=== PATIENT | male | born 1945 | race Caucasian/White ===

== ENCOUNTER → 2016-10-15 | Outpatient (CLI) | payer OTHER | END | disposition home or self-care (01) | LOC: LAB 09:36 | DX: A09 Infectious gastroenteritis and colitis, unspecified (principal) ==

== ENCOUNTER → 2016-12-16 | Outpatient (CLI) | payer OTHER | END | disposition home or self-care (01) | LOC: LAB 10:14 | DX: R19.7 Diarrhea, unspecified (principal) ==

== ENCOUNTER 2016-12-21 12:06 | Inpatient (IN) | payer OTHER ==
[~2016-12-21] VITALS: Ht 213.3 cm; Wt 96.8 kg
--- NOTE | ~2016-12-21 | CON ---
[place], [place] REPORT OF CONSULTATION NAME: CHRISTINA [facility]ILD [facility]: [id number] UNIT #: [id number] ROOM: 522 DOCTOR: AKASH MARCANO MDNEW BAVARIAJUAN CARLOS BIRTHDATE: [birth year] DOS: HISTORY OF PRESENT ILLNESS: A 71-year-old patient who presented with multiple medical issues among which has been dizziness, blurred vision, not feeling well, diarrhea up to 12 times per day. Apparently, this patient has been scoped in [place] by Dr. Knapp, one of the gastroenterologists and the patient has been found to have severe diverticulosis; otherwise, he has had gastritis, but he continues with the stress with diarrhea. Actually, he had electrolyte imbalance and the stress. The patient had a panel of blood work done. C. diff was negative. CT scan of the head for his confusion was obtained that was normal. White blood cell was 6, H and H were 13 and 41. Lactic acid was 0.9. INR was 2.6, PT 29 and PTT 40 seconds. Comprehensive metabolic panel: BUN and creatinine of 33 and 1.4, GFR of 57. Electrolyte, carbon dioxide -8. Magnesium 2.9, lipase 965, ketones were negative. Arterial blood gases pH of 7.1 with base excess of -18 has been addressed. Serum cortisol was 21. His ova and parasite remained negative. His labs and records were reviewed. PAST MEDICAL HISTORY: Associated hypertension, hyperlipidemia, atrial fibrillation, myocardial infarction. PAST SURGICAL HISTORY: Bilateral hip, appendectomy, and pacemaker. SOCIAL HISTORY: Past smoker, past alcohol consumer. FAMILY HISTORY: Noncontributory. ALLERGIES: IBUPROFEN. MEDICATIONS: List has been reviewed. REVIEW OF SYSTEMS: HEENT: Denies double vision, blurred vision. RESPIRATORY: Denies acute shortness of breath, chronically short of breath. DIGESTIVE SYSTEM: Diarrhea. CARDIOVASCULAR: History of myocardial infarction. PHYSICAL EXAMINATION: VITAL SIGNS: Stable. HEENT: Head normocephalic, nontraumatic. Mouth and buccal mucosa benign. NECK: Supple, no thyromegaly. CHEST: Symmetric anatomy, equal expansion. No wheeze, no rhonchi. HEART: Normal sinus rhythm, no gallop, no murmur. ABDOMEN: Soft. No hepato-organomegaly. Bowel sounds present. EXTREMITIES: No cyanosis, no pedal edema. NEUROLOGIC: Alert and oriented to time, place, person. Sensory, motor intact. Cranial nerves 2-12 intact. INTEGUMENT: Numerous homemade tattooings. IMPRESSION: Diarrhea, base loss, metabolic acidosis, electrolyte distress, dehydration. Apparently, the patient has severe diverticulosis. I do not have [place], [place] REPORT OF CONSULTATION NAME: CHRISTINA CHILD UNIT #: [id number] ROOM: 522 DOCTOR: EDMOND MARCANO MD BIRTHDATE: [birth year] any more data beyond this. C. diff has been negative. Other adjunctive diagnoses: Atrial fibrillation, hypertension, renal insufficiency, all have been recognized. PLAN AND DISCUSSION: Due to the persistent diarrhea and C. diff negativity and ova and parasite negativity, I am going to start him on sulfasalazine 500 mg p.o. 2 tablets b.i.d. in addition to folic acid 1 mg daily at least to see if we can bring some sanity to his improvement of diarrhea. I wish I had the biopsy results for any comments except the data that I have on my hand with no specific pathology in the tissue. Therefore, severe diverticulosis is going to be addressed to be perhaps a culprit in bacterial overgrowth ____ diverticulum, therefore, Flagyl 500 mg p.o. t.i.d. is going to be also adopted for bacteria reduction as well in case C. diff false negativity report to be addressed. I will be following along with you. Should his condition continue, then she requires reassessment after colonoscopy with addition of terminal ileoscopy at such a time. Due to be ambiguity of all the scenario and abdominal distress and clinical presentation of severe acidosis, I will go ahead with a CT scan of the abdomen with oral contrast as well. Thank you very much indeed. EDMOND MARCANO MD CM:CONSTR:REPORT OF CONSULTATION 1144 12/23/16 2228 interface
--- NOTE | ~2016-12-21 | PR ---
[place], [place] PROGRESS NOTE NAME: CHRISTINA CHILD UNIT #: [id number] ROOM: 511 DOCTOR: YARELIS MOODYROSANNE Walters BIRTHDATE: [birth year] DOS: 12/25/2016 NEPHROLOGY PROGRESS NOTE SUBJECTIVE: The patient was seen and evaluated in followup of metabolic acidosis, EDSON and electrolyte abnormalities. He went back to the ICU after his defibrillator fired. He was noted to have AFib with RVR. He is currently without acute complaints at this time. GI is continuing to follow. Stool is less watery and more pudding like per staff, started on sulfasalazine by GI. Potassium replacement has been started. OBJECTIVE: VITAL SIGNS: Afebrile, heart rates in the 60s-70s, respiratory rate 16, blood pressure is 90s-100s on a Cardizem drip, pulse ox 94-97% on room air. GENERAL: Awake, alert and oriented, in no acute distress, pleasant mood and affect. Speech is clear and cogent. LUNGS: Clear bilaterally. No audible rales, rhonchi or wheeze. CARDIOVASCULAR: Rate irregular, but rate controlled. No audible rub. ABDOMEN: Soft, nontender, nondistended, without rebound or guarding. EXTREMITIES: Periphery without significant peripheral cyanosis, clubbing or edema. LABORATORIES AND DIAGNOSTICS: White blood cell count 6.5, hemoglobin 11.9, platelet 170, sodium 148, potassium 3.2, chloride 118, bicarb 21, BUN 12, creatinine 1.09, calcium 8.4, phosphorus 1.7, magnesium 2.3. ASSESSMENT AND PLAN: 1. EDSON, overall improved. Monitor GI losses primarily. 2. Electrolytes, hypernatremia, hypokalemia, metabolic acidosis, secondary diarrhea and free water losses. We will give 1 liter of D5W with 20 mEq of potassium as well as start 40 mEq t.i.d. as he has already received 40 mg on a daily basis with no improvement. Additional 45 millimoles of K-Phos will be given as phosphorus continues to be slow to improve despite adequate oral intake. AFib with RVR, continue replacement of electrolytes and monitor further per Cardiology. [place], [place] PROGRESS NOTE NAME: CHRISTINA CHILD UNIT #: [id number] ROOM: [facility] DOCTOR: ROSANNE SANTOYO MD BIRTHDATE: [birth year] ROSANNE SANTOYO MD CM:PNTRANS [id number] ROSANNE SANTOYO MD 12/26/16 1309 interface
--- NOTE | ~2016-12-21 | CON ---
[place], [place] REPORT OF CONSULTATION NAME: CHRISTINA CHILD UNIT #: [id number] ROOM: 511 DOCTOR: JOSE C MOODY [facility] BIRTHDATE: [birth year] DOS: 12/25/2016 ADDENDUM The patient was not on Nipride and we will continue the current, blood pressure is stable. If unstable, he will be followed with Dr. Jeronimo. AMARA WOODALL MD CM:CONSTR:REPORT OF CONSULTATION 1110 12/26/16 0557 interface
--- NOTE | ~2016-12-21 | PR ---
[place], [place] PROGRESS NOTE [id number] UNIT #: [id number] ROOM: 511 DOCTOR: JOSE C MOODY [facility] BIRTHDATE: [birth year] DOS: 12/25/2016 CARDIOLOGY PROGRESS NOTE COVERING: Dr. Jeronimo. SUBJECTIVE: No ____, no syncope. The patient came in with a loose bowel, slurred speech and managed, found to be severely hypotensive and tachycardic, and the patient is on amiodarone by mouth and IV discontinued; hypotensive crisis, was transiently on Nipride and Cardizem and amiodarone. All the drips are off and maintaining the blood pressure optimally with the oral medications. The patient was concerned about having a TIA, but no history of cerebrovascular problem in the past. The patient has a history of myocardial infarction in the past. The patient came to the Emergency Room. Chest x-ray with mild left base atelectasis, no acute changes and very tiny left pleural effusion. CT scan of the head without contrast, no acute intracranial process. The patient was in atrial fibrillation, apparently chronic, but now, he appears to be sinus rhythm with optimal medical therapy and doing quite well. PHYSICAL EXAMINATION: SKIN: The skin is warm, not diaphoretic. NECK: Supple. LUNGS: No rales heard. HEART: S1, S2, regular. ABDOMEN: Soft. Clinically, he appears stable. Hemodynamically stable. We will continue the current therapy. AMARA WOODALL MD CM:PNTRANS [id number] AMARA WOODALL MD [facility] 12/28/16 0507 interface
--- NOTE | ~2016-12-21 | CON ---
[place], [place] REPORT OF CONSULTATION NAME: CHRISTINA CHILD UNIT #: [id number] ROOM: 511 DOCTOR: JOSE C MOODY [facility] BIRTHDATE: [birth year] DOS: 12/25/2016 CARDIOLOGY CONSULT Refer to the note as a part of the consultation which is dictated today and the patient had atrial fibrillation with a very rapid ventricular response and ICD function and able to get him back into the sinus and because of the very rapid heart rate and he had responded that way on the defibrillator we are adjusting the medication to function optimally and the Lumen[employer]it[employer] RAP review that is atrial fibrillation with rapid ventricular response. No true ventricular tachycardia or ventricular fibrillation. Amiodarone will be converted today by mouth and 200 mg twice a day and then we will discontinue the amiodarone drip and we will also maintain the optimal heart rate with medications. He is on amiodarone 200 mg twice a day and metoprolol 50 mg twice a day and the patient is on warfarin. Cardizem drip is off and we will put him on Cardizem 240 mg daily that should keep him in sinus rhythm. Cardizem CD 240 mg daily, a dose now and one daily, explained to the patient. We will follow the patient closely. Hemodynamically stable at this time. AMARA WOODALL MD CM:CONSTR:REPORT OF CONSULTATION 1123 12/28/16 0154 interface
[2016-12-21 12:13] VITALS: BP 116/83
[2016-12-21] MEDS ORDERED: WARFARIN SOD5 MG PO (12:47)
[2016-12-21] MEDS ORDERED: LISINOPRIL10 M1 PO (12:47)
[2016-12-21] MEDS ORDERED: OMEPRAZOLE D/R20 MG PO (12:48)
[2016-12-21] MEDS ORDERED: ATORVASTATIN CA80 M1 PO (12:48)
[2016-12-21] MEDS ORDERED: FUROSEMIDE20 M1 PO (12:48)
[2016-12-21] MEDS ORDERED: POTASSIUM CHLO10 ME5 PO (12:49)
[2016-12-21] MEDS ORDERED: METOPROLOL SUC200 M1 PO (12:50)
[2016-12-21] MEDS ORDERED: CHOLESTYRAMINE1 PO1 (12:51)
[2016-12-21] MEDS ORDERED: SMZ-TMP 800 MG-1 TA1 PO (12:51)
[2016-12-21 13:26] LABS: BASO % 0.3 % (0.0-1.0); EOS % 0.7 % (1.0-4.0); HEMATOCRIT 41.6 % (42.0-52.0); LYMPH # 1.2 10*3/uL (1.3-4.4); LYMPH % 19.8 % (27.0-41.0); MEAN CELL VOLUME 86.3 fl (80.0-94.0); MEAN CORPUSCULAR HGB CONC 31.3 g/dl (33.0-37.0); MEAN PLATELET VOLUME 10.8 fl (9.6-12.3); MONO # 0.5 10*3/uL (0.1-1.0); MONO % 8.1 % (3.0-9.0); NEUT # 4.2 10*3/uL (2.3-7.9); NEUT % 70.8 % (47.0-73.0); PLATELET COUNT AUTOMATED 169 10*3/uL (130-400); RED BLOOD COUNT 4.82 10*6/uL (4.50-5.90)
[2016-12-21 13:35] LABS: INTERNATIONAL NORM RATIO 2.6 (2.0-3.5)
[2016-12-21 13:43] LABS: ALBUMIN 3.2 gm/dl (3.1-4.5); ALKALINE PHOSPHATASE 139 U/L (45-117); BILIRUBIN, TOTAL 0.3 mg/dl (0.2-1.0); BUN 33 mg/dl (7-24); CHLORIDE 123 mmol/L (98-107); CPK 82 U/L (39-308); EST GLOM FILT AFRICAN AMERICAN 57 ml/min; GLUCOSE 78 mg/dL (65-99); MAGNESIUM 2.9 mg/dL (1.5-2.1); POTASSIUM 3.7 mmol/L (3.5-5.1); SGOT/AST 23 IU/L (3-35); SGPT/ALT 19 U/L (12-78); SODIUM 143 mmol/L (136-145); TOTAL PROTEIN 6.9 gm/dL (6.4-8.2); TROPONIN I 0.018 ng/ml (<0.045)
[2016-12-21 13:45] LABS: C-REACTIVE PROTEIN < 0.29 MG/DL (0-0.3)
[2016-12-21 13:46] LABS: CARBON DIOXIDE 8 mmol/L (21-32)
[2016-12-21 13:47] LABS: CKMB 5.4 ng/ml (0.5-3.6)
[2016-12-21 13:49] VITALS: BP 106/56
[2016-12-21 14:53] VITALS: BP 91/49
[2016-12-21 15:06] LABS: OXYHEMOGLOBIN 60.7 % (85.0-98.0)
[2016-12-21 15:09] LABS: ABG CO2 CONTENT 8.9 mmol/L (23-27); ABG HCO3 8.2 mmol/l (22-26)
[2016-12-21 15:14] LABS: ABG BASE EXCESS -18.7 mmol/L (-2.0-2.0); ARTERIAL BLOOD GAS PH 7.193 (7.35-7.45)
[2016-12-21 16:40] LABS: BILIRUBIN NEGATIVE (NEGATIVE); BLOOD 1+ (NEGATIVE); CLARITY CLEAR (CLEAR); COLOR YELLOW (YELLOW); GLUCOSE NEGATIVE (NEGATIVE); KETONE NEGATIVE (NEGATIVE); LEUKO ESTERASE NEGATIVE (NEGATIVE); NITRITE NEGATIVE (NEGATIVE); PH 6.5 (5.0-9.0); PROTEIN 1+ (NEGATIVE); UROBILINOGEN 0.2 E.U./dl (0.2-1.0)
[2016-12-21 17:01] LABS: BACTERIA 1+; URINE REFLEX COMMENT YES (NO)
[2016-12-21 17:15] VITALS: BP 113/56; BP 113/59
[2016-12-21 20:00] VITALS: BP 117/62
[2016-12-22] VITALS: BP 104/52
[2016-12-22 04:22] VITALS: BP 93/59
[2016-12-22 06:22] LABS: BASO % 0.3 % (0.0-1.0); EOS # 0.1 10*3/uL (0.0-0.4); EOS % 1.4 % (1.0-4.0); HEMATOCRIT 38.8 % (42.0-52.0); HEMOGLOBIN 12.4 g/dl (14.0-18.0); LYMPH # 1.3 10*3/uL (1.3-4.4); LYMPH % 21.8 % (27.0-41.0); MEAN CELL VOLUME 84.9 fl (80.0-94.0); MEAN CORPUSCULAR HGB 27.1 pg (27.0-31.0); MEAN PLATELET VOLUME 11.1 fl (9.6-12.3); MONO # 0.6 10*3/uL (0.1-1.0); MONO % 9.6 % (3.0-9.0); NEUT # 3.8 10*3/uL (2.3-7.9); NEUT % 66.6 % (47.0-73.0); PLATELET COUNT AUTOMATED 184 10*3/uL (130-400); RED BLOOD COUNT 4.57 10*6/uL (4.50-5.90); WHITE BLOOD COUNT 5.7 10*3/uL (4.8-10.8)
[2016-12-22 06:30] LABS: HEMOGLOBIN A1c 5.7 % (4.8-5.6)
[2016-12-22 06:49] LABS: BILIRUBIN, TOTAL 0.2 mg/dl (0.2-1.0); MAGNESIUM 2.5 mg/dL (1.5-2.1); PHOSPHOROUS 1.8 mg/dL (2.5-4.9); POTASSIUM 3.2 mmol/L (3.5-5.1); TOTAL PROTEIN 6.3 gm/dL (6.4-8.2)
[2016-12-22 06:51] LABS: INTERNATIONAL NORM RATIO 2.3 (2.0-3.5); PROTHROMBIN TIME 25.4 SECONDS (9.0-12.4)
[2016-12-22 06:55] LABS: THYROID STIM HORMONE (HS) 2.26 uIU/ml (0.358-4.75)
[2016-12-22 07:22] LABS: VITAMIN D, 25-HYDROXY 22.3 ng/mL (30-100)
[2016-12-22 07:23] LABS: FOLIC ACID 18.51 ng/mL (>5.38)
[2016-12-22 08:00] VITALS: BP 106/46
[2016-12-22 12:00] VITALS: BP 95/52
[2016-12-22 15:49] LABS: URINE TP/CRE RATIO 0.5 (<0.21)
[2016-12-22 16:00] VITALS: BP 101/54
[2016-12-22 20:00] VITALS: BP 126/63
[2016-12-23] VITALS: BP 100/43
[2016-12-23 04:00] VITALS: BP 109/49
[2016-12-23 05:15] LABS: ALBUMIN 2.8 gm/dl (3.1-4.5); ALKALINE PHOSPHATASE 116 U/L (45-117); BILIRUBIN, TOTAL 0.4 mg/dl (0.2-1.0); BUN 25 mg/dl (7-24); CARBON DIOXIDE 24 mmol/L (21-32); CHLORIDE 118 mmol/L (98-107); EST GLOM FILT AFRICAN AMERICAN > 60 ml/min; GLUCOSE 100 mg/dL (65-99); MAGNESIUM 2.2 mg/dL (1.5-2.1); PHOSPHOROUS 1.6 mg/dL (2.5-4.9); POTASSIUM 2.9 mmol/L (3.5-5.1); SGOT/AST 19 IU/L (3-35); SGPT/ALT 17 U/L (12-78); SODIUM 149 mmol/L (136-145); TOTAL PROTEIN 5.9 gm/dL (6.4-8.2)
[2016-12-23 05:58] LABS: BASO % 0.6 % (0.0-1.0); EOS # 0.1 10*3/uL (0.0-0.4); HEMATOCRIT 36.3 % (42.0-52.0); HEMOGLOBIN 11.5 g/dl (14.0-18.0); LYMPH # 1.6 10*3/uL (1.3-4.4); LYMPH % 30.1 % (27.0-41.0); MEAN CELL VOLUME 84.2 fl (80.0-94.0); MEAN CORPUSCULAR HGB 26.7 pg (27.0-31.0); MEAN CORPUSCULAR HGB CONC 31.7 g/dl (33.0-37.0); MEAN PLATELET VOLUME 11.1 fl (9.6-12.3); MONO # 0.4 10*3/uL (0.1-1.0); MONO % 7.9 % (3.0-9.0); NEUT # 3.2 10*3/uL (2.3-7.9); NEUT % 59.2 % (47.0-73.0); PLATELET COUNT AUTOMATED 168 10*3/uL (130-400); RED BLOOD COUNT 4.31 10*6/uL (4.50-5.90); RED CELL DISTRI WIDTH 16.4 % (0-14.5); WHITE BLOOD COUNT 5.4 10*3/uL (4.8-10.8)
[2016-12-23 06:26] LABS: ABG CO2 CONTENT 18.4 mmol/L (23-27); ABG HCO3 17.5 mmol/l (22-26); ABG TEMPERATURE 97.7 F (98.0-99.0); ARTERIAL BLOOD GAS PH 7.401 (7.35-7.45); ARTERIAL BLOOD GAS PO2 75.4 mmHg (80-90)
[2016-12-23 06:27] LABS: ABG BASE EXCESS -5.9 mmol/L (-2.0-2.0)
[2016-12-23 08:00] VITALS: BP 120/62
[2016-12-23 12:00] VITALS: BP 115/55
[2016-12-23 16:00] VITALS: BP 129/64
[2016-12-23 20:00] VITALS: BP 109/49
[2016-12-24] VITALS (7 sets, daily range): BP systolic 89–181; BP diastolic 40–100
[2016-12-24 11:18] LABS: CARBON DIOXIDE 21 mmol/L (21-32); CHLORIDE 120 mmol/L (98-107); EST GLOM FILT AFRICAN AMERICAN > 60 ml/min; GLUCOSE 147 mg/dL (65-99); POTASSIUM 3.4 mmol/L (3.5-5.1); SODIUM 149 mmol/L (136-145)
[2016-12-24 11:43] LABS: MAGNESIUM 2.3 mg/dL (1.5-2.1); PHOSPHOROUS 1.5 mg/dL (2.5-4.9)
[2016-12-24 11:43] LABS: BUN 13 mg/dl (7-24)
[2016-12-24 13:05] LABS: t-TRANSGLUTAMINASE (tTG) IgG <2 U/mL (0-5)
[2016-12-24 16:34] LABS: INTERNATIONAL NORM RATIO 1.6 (2.0-3.5); PROTHROMBIN TIME 17.2 SECONDS (9.0-12.4)
[2016-12-24 16:37] LABS: BUN 15 mg/dl (7-24); CARBON DIOXIDE 17 mmol/L (21-32); CHLORIDE 118 mmol/L (98-107); EST GLOM FILT AFRICAN AMERICAN > 60 ml/min; GLUCOSE 156 mg/dL (65-99); POTASSIUM 3.3 mmol/L (3.5-5.1); SODIUM 147 mmol/L (136-145)
[2016-12-24 16:42] LABS: CKMB 3.6 ng/ml (0.5-3.6); TROPONIN I 0.041 ng/ml (<0.045)
[2016-12-25] VITALS (12 sets, daily range): BP systolic 98–112; BP diastolic 38–62
[2016-12-25 06:04] LABS: BASO % 0.6 % (0.0-1.0); EOS # 0.1 10*3/uL (0.0-0.4); EOS % 1.8 % (1.0-4.0); HEMATOCRIT 37.6 % (42.0-52.0); HEMOGLOBIN 11.9 g/dl (14.0-18.0); LYMPH # 1.7 10*3/uL (1.3-4.4); LYMPH % 25.5 % (27.0-41.0); MEAN CELL VOLUME 84.3 fl (80.0-94.0); MEAN CORPUSCULAR HGB 26.7 pg (27.0-31.0); MEAN CORPUSCULAR HGB CONC 31.6 g/dl (33.0-37.0); MEAN PLATELET VOLUME 11.3 fl (9.6-12.3); MONO # 0.5 10*3/uL (0.1-1.0); MONO % 7.7 % (3.0-9.0); NEUT # 4.2 10*3/uL (2.3-7.9); NEUT % 63.9 % (47.0-73.0); PLATELET COUNT AUTOMATED 170 10*3/uL (130-400); RED BLOOD COUNT 4.46 10*6/uL (4.50-5.90); RED CELL DISTRI WIDTH 17.2 % (0-14.5); WHITE BLOOD COUNT 6.5 10*3/uL (4.8-10.8)
[2016-12-25 06:39] LABS: ALBUMIN 3.2 gm/dl (3.1-4.5); BUN 12 mg/dl (7-24); CARBON DIOXIDE 21 mmol/L (21-32); CHLORIDE 118 mmol/L (98-107); EST GLOM FILT AFRICAN AMERICAN > 60 ml/min; GLUCOSE 103 mg/dL (65-99); MAGNESIUM 2.3 mg/dL (1.5-2.1); PHOSPHOROUS 1.7 mg/dL (2.5-4.9); POTASSIUM 3.2 mmol/L (3.5-5.1); SODIUM 148 mmol/L (136-145)
[2016-12-25 07:53] LABS: INTERNATIONAL NORM RATIO 1.6 (2.0-3.5)
[2016-12-26] VITALS: BP 105/52
[2016-12-26 06:19] LABS: BASO % 0.5 % (0.0-1.0); EOS # 0.1 10*3/uL (0.0-0.4); EOS % 2.1 % (1.0-4.0); HEMATOCRIT 36.7 % (42.0-52.0); HEMOGLOBIN 11.5 g/dl (14.0-18.0); LYMPH # 1.7 10*3/uL (1.3-4.4); MEAN CELL VOLUME 85.3 fl (80.0-94.0); MEAN CORPUSCULAR HGB 26.7 pg (27.0-31.0); MEAN CORPUSCULAR HGB CONC 31.3 g/dl (33.0-37.0); MEAN PLATELET VOLUME 11.6 fl (9.6-12.3); MONO # 0.5 10*3/uL (0.1-1.0); MONO % 7.3 % (3.0-9.0); NEUT # 4.3 10*3/uL (2.3-7.9); NEUT % 64.8 % (47.0-73.0); PLATELET COUNT AUTOMATED 170 10*3/uL (130-400); RED CELL DISTRI WIDTH 17.6 % (0-14.5); WHITE BLOOD COUNT 6.6 10*3/uL (4.8-10.8)
[2016-12-26 06:49] LABS: ALBUMIN 2.9 gm/dl (3.1-4.5); BUN 12 mg/dl (7-24); CARBON DIOXIDE 22 mmol/L (21-32); CHLORIDE 115 mmol/L (98-107); EST GLOM FILT AFRICAN AMERICAN > 60 ml/min; GLUCOSE 97 mg/dL (65-99); MAGNESIUM 2.2 mg/dL (1.5-2.1); PHOSPHOROUS 2.1 mg/dL (2.5-4.9); POTASSIUM 4.1 mmol/L (3.5-5.1); SODIUM 146 mmol/L (136-145)
[2016-12-26 06:54] LABS: INTERNATIONAL NORM RATIO 1.9 (2.0-3.5); PROTHROMBIN TIME 20.9 SECONDS (9.0-12.4)
[2016-12-26 08:00] VITALS: BP 108/60; BP 96/60
[2016-12-26 12:00] VITALS: BP 108/56
[2016-12-26] MEDS ORDERED: METOPROLOL TART50 M1 PO (13:21)
[2016-12-26] MEDS ORDERED: COUMADIN6 M2 PO (13:21)
[2016-12-26] MEDS ORDERED: DILTIAZEM CD240 MG PO (13:21)
[2016-12-26] MEDS ORDERED: NATURE'S BLEND F1 MG PO (13:21)
[2016-12-26] MEDS ORDERED: D-1000 185 MG-11 TAB PO (13:21)
[2016-12-26] MEDS ORDERED: LOPERAMIDE HCL2 MG PO (13:21)
[2016-12-26] MEDS ORDERED: METAMUCIL FIBE3.4 GM PO (13:21)
[2016-12-26] MEDS ORDERED: KLOR-CON M2020 ME1 PO (13:21)
[2016-12-26] MEDS ORDERED: PROBIOTIC1 EACH PO (15:12)
[2016-12-26 16:00] VITALS: BP 97/60
[2016-12-26 20:00] VITALS: BP 105/60
[2016-12-27] VITALS: BP 121/67
[2016-12-27 07:12] LABS: BUN 10 mg/dl (7-24); CARBON DIOXIDE 24 mmol/L (21-32); CHLORIDE 114 mmol/L (98-107); EST GLOM FILT AFRICAN AMERICAN > 60 ml/min; GLUCOSE 101 mg/dL (65-99); MAGNESIUM 2.4 mg/dL (1.5-2.1); POTASSIUM 4.4 mmol/L (3.5-5.1); SODIUM 146 mmol/L (136-145)
[2016-12-27 08:00] VITALS: BP 114/66
[2016-12-27 12:00] VITALS: BP 128/60
== END 2016-12-27 13:05 | disposition home or self-care (01) | DRG 391 ==
LOC: ED 12:06 → EDHOLD 14:21 → ICCU 14:21 → 5E 14:21 → EDHOLD 14:59 → 4E 15:56 → ICCU 20:03 → 5E 12-23 13:29 → ICCU 12-24 16:20 → 5E 12-25 16:59
PROVIDERS: Emergency Medicine; Hospitalist; Internal Medicine; Internal Medicine Nephrology
DX: K52.9 Noninfective gastroenteritis and colitis, unspecified (principal); N17.0 Acute kidney failure with tubular necrosis; E87.2 Acidosis; E87.0 Hyperosmolality and hypernatremia; E44.0 Moderate protein-calorie malnutrition; I48.2 Chronic atrial fibrillation; E78.5 Hyperlipidemia, unspecified; E83.41 Hypermagnesemia; I12.9 Hypertensive chronic kidney disease with stage 1 through stage 4 chronic kidney disease, or unspecified chronic kidney disease; E83.39 Other disorders of phosphorus metabolism; Z96.643 Presence of artificial hip joint, bilateral; R26.81 Unsteadiness on feet; D64.9 Anemia, unspecified; N18.3 Chronic kidney disease, stage 3 (moderate); E87.6 Hypokalemia; E86.0 Dehydration; I25.2 Old myocardial infarction; Z90.49 Acquired absence of other specified parts of digestive tract; Z87.891 Personal history of nicotine dependence; Z88.6 Allergy status to analgesic agent; Z79.01 Long term (current) use of anticoagulants; Z79.899 Other long term (current) drug therapy

== ENCOUNTER → 2017-10-20 | Outpatient (CLI) | payer OTHER ==
[~2017-10-20] MED LIST: ATORVASTATIN CA80 M1 PO; CHOLESTYRAMINE1 PO1; COUMADIN6 M2 PO; D-1000 185 MG-11 TAB PO; DILTIAZEM CD240 MG PO; FUROSEMIDE20 M1 PO; KLOR-CON M2020 ME1 PO; LISINOPRIL10 M1 PO; LOPERAMIDE HCL2 MG PO; METAMUCIL FIBE3.4 GM PO; METOPROLOL SUC200 M1 PO; METOPROLOL TART50 M1 PO; NATURE'S BLEND F1 MG PO; OMEPRAZOLE D/R20 MG PO; POTASSIUM CHLO10 ME5 PO; PROBIOTIC1 EACH PO; SMZ-TMP 800 MG-1 TA1 PO; WARFARIN SOD5 MG PO
== END | disposition home or self-care (01) ==
LOC: RAD 10-14 11:30
DX: Z13.820 Encounter for screening for osteoporosis (principal); R73.03 Prediabetes

== ENCOUNTER 2017-11-12 06:29 | Inpatient (IN) | payer OTHER ==
[~2017-11-12] VITALS: Ht 182.8 cm; Wt 104.4 kg
--- NOTE | ~2017-11-12 | EKG ---
[place], [place] ELECTROCARDIOGRAM REPORT NAME: CHRISTINA CHILD UNIT #: [id number] ROOM: [facility] DOCTOR: JOSE C MOODY [facility] BIRTHDATE: [birth year] DOS: 11/12/2017 TIME: 1212 hours. CONCLUSION: 1. Sinus rhythm. 2. Old anteroseptal infarction. 3. Low voltage. 4. Left anterior hemiblock. 5. Nonspecific ST changes. 6. Atrial pacing with intrinsic AV conduction and intrinsic QRS complex. AMARA WOODALL MD CM:EKGRPT:ELECTROCARDIOGRAM REPORT 1203 1227 AMARA WOODALL MD [facility]
--- NOTE | ~2017-11-12 | EKG ---
[place], [place] ELECTROCARDIOGRAM REPORT NAME: CHRISTINA CHILD UNIT #: [id number] ROOM: [facility] DOCTOR: JOSE C MOODY [facility] BIRTHDATE: [birth year] DOS: 11/12/2017 TIME: 0926 hours. CONCLUSION: 1. Atrial pacing. 2. Intrinsic AV conduction. 3. Intrinsic QRS complex. 4. Old anteroseptal infarction. 5. Left anterior hemiblock. 6. Low voltage. AMARA WOODALL MD CM:EKGRPT:ELECTROCARDIOGRAM REPORT 1203 1231 AMARA WOODALL MD [facility]
--- NOTE | ~2017-11-12 | EKG ---
[place], [place] ELECTROCARDIOGRAM REPORT NAME: CHRISTINA CHILD UNIT #: [id number] ROOM: [facility] DOCTOR: JOSE C MOODY [facility] BIRTHDATE: [birth year] DOS: 11/12/2017 TIME: 0638 hours. CONCLUSION: 1. Sinus rhythm. 2. Old anteroseptal infarction. 3. Left anterior hemiblock. 4. Low voltage. 5. Nonspecific ST changes. AMARA WOODALL MD CM:EKGRPT:ELECTROCARDIOGRAM REPORT 1203 1233 AMARA WOODALL MD [facility]
[2017-11-12 06:30] VITALS: BP 147/71
[2017-11-12] MEDS ORDERED: METOPROLOL SUC100 M1 PO (06:47)
[2017-11-12] MEDS ORDERED: METOPROLOL SUCC50 M1 PO (06:47)
[2017-11-12] MEDS ORDERED: OMEPRAZOLE MAGN20 MG PO (06:47)
[2017-11-12] MEDS ORDERED: KLOR-CON 1010 ME1 PO (06:47)
[2017-11-12] MEDS ORDERED: LASIX20 MG PO (06:48)
[2017-11-12] MEDS ORDERED: FLAX SEED OIL1000 M2 PO (06:48)
[2017-11-12] MEDS ORDERED: ZESTRIL5 MG PO (06:48)
[2017-11-12] MEDS ORDERED: XARE15TA PO (06:48)
[2017-11-12] MEDS ORDERED: ATORVASTATIN CA80 M1 PO (06:49)
[2017-11-12] MEDS ORDERED: MULTIVITAMINS1 EAC5 PO (06:49)
[2017-11-12] MEDS ORDERED: [UNRECOGNIZED DRUG - OTHER] PO (06:50)
[2017-11-12 06:55] LABS: BASO % 0.4 % (0.0-1.0); EOS # 0.1 10*3/uL (0.0-0.4); EOS % 1.9 % (1.0-4.0); HEMATOCRIT 41.7 % (42.0-52.0); HEMOGLOBIN 13.5 g/dl (14.0-18.0); LYMPH # 1.3 10*3/uL (1.3-4.4); LYMPH % 23.4 % (27.0-41.0); MEAN CELL VOLUME 87.8 fl (80.0-94.0); MEAN CORPUSCULAR HGB 28.4 pg (27.0-31.0); MEAN CORPUSCULAR HGB CONC 32.4 g/dl (33.0-37.0); MEAN PLATELET VOLUME 11.6 fl (9.6-12.3); MONO # 0.4 10*3/uL (0.1-1.0); MONO % 6.9 % (3.0-9.0); NEUT # 3.6 10*3/uL (2.3-7.9); NEUT % 67.2 % (47.0-73.0); PLATELET COUNT AUTOMATED 157 10*3/uL (130-400); RED BLOOD COUNT 4.75 10*6/uL (4.50-5.90); WHITE BLOOD COUNT 5.4 10*3/uL (4.8-10.8)
[2017-11-12 07:04] LABS: ACT PARTIAL THROMBO TIME 32.3 SECONDS (20.8-31.5); INTERNATIONAL NORM RATIO 1.2 (2.0-3.5)
[2017-11-12 07:07] VITALS: BP 122/41
[2017-11-12 07:36] LABS: ALBUMIN 3.2 gm/dl (3.1-4.5); ALKALINE PHOSPHATASE 108 U/L (45-117); BUN 23 mg/dl (7-24); CHLORIDE 108 mmol/L (98-107); CREATININE 1.14 mg/dL (0.70-1.30); POTASSIUM 4.2 mmol/L (3.5-5.1); SGOT/AST 24 IU/L (3-35); SGPT/ALT 21 U/L (12-78); SODIUM 140 mmol/L (136-145); TOTAL PROTEIN 7.1 gm/dL (6.4-8.2)
[2017-11-12 07:40] LABS: TROPONIN I < 0.015 ng/ml (<0.045)
[2017-11-12 08:40] VITALS: BP 136/65
[2017-11-12] MEDS ORDERED: LOMOTIL 2.5-0.1 EACH PO (08:43)
[2017-11-12 12:00] VITALS: BP 115/56
[2017-11-12 16:00] VITALS: BP 118/61
[2017-11-12 20:00] VITALS: BP 118/59
[2017-11-13] VITALS: BP 117/54
[2017-11-13 06:04] LABS: BASO % 0.4 % (0.0-1.0); EOS # 0.1 10*3/uL (0.0-0.4); EOS % 1.8 % (1.0-4.0); HEMATOCRIT 39.7 % (42.0-52.0); HEMOGLOBIN 12.7 g/dl (14.0-18.0); LYMPH # 1.4 10*3/uL (1.3-4.4); MEAN CELL VOLUME 89.2 fl (80.0-94.0); MEAN CORPUSCULAR HGB 28.5 pg (27.0-31.0); MEAN PLATELET VOLUME 11.9 fl (9.6-12.3); MONO # 0.6 10*3/uL (0.1-1.0); MONO % 10.1 % (3.0-9.0); NEUT # 3.4 10*3/uL (2.3-7.9); NEUT % 62.3 % (47.0-73.0); PLATELET COUNT AUTOMATED 139 10*3/uL (130-400); RED BLOOD COUNT 4.45 10*6/uL (4.50-5.90); RED CELL DISTRI WIDTH 14.1 % (0-14.5); WHITE BLOOD COUNT 5.5 10*3/uL (4.8-10.8)
[2017-11-13 06:18] LABS: ACT PARTIAL THROMBO TIME 31.1 SECONDS (20.8-31.5); INTERNATIONAL NORM RATIO 1.2 (2.0-3.5)
[2017-11-13 06:22] LABS: BUN 19 mg/dl (7-24); CHLORIDE 110 mmol/L (98-107); CHOLESTEROL 93 mg/dL (<200); CREATININE 1.02 mg/dL (0.70-1.30); HDL CHOLESTEROL 34 mg/dl (40-60); LDL CHOLESTEROL 37 mg/dL (9-159); PHOSPHOROUS 3.6 mg/dL (2.5-4.9); POTASSIUM 3.8 mmol/L (3.5-5.1); SODIUM 144 mmol/L (136-145); TRIGLYCERIDES 109 mg/dl (<150); VLDL CHOLESTEROL 22 mg/dL (6-40)
[2017-11-13 06:29] LABS: FREE T4 1.51 ng/dl (0.76-1.46)
[2017-11-13 06:47] LABS: VITAMIN D, 25-HYDROXY 50.3 ng/mL (30-100)
[2017-11-13 08:00] VITALS: BP 112/60
== END 2017-11-13 11:55 | disposition home or self-care (01) | DRG 206 ==
LOC: ED 06:29 → EDHOLD 07:52 → 5E 07:52
PROVIDERS: Emergency Medicine Emergency Medical Services; Internal Medicine
PROC: 4B02XTZ Measurement of Cardiac Defibrillator, External Approach (ICD-10-PCS; principal; 2017-11-12)
DX: M94.0 Chondrocostal junction syndrome [Tietze] (principal); D68.9 Coagulation defect, unspecified; N18.3 Chronic kidney disease, stage 3 (moderate); I48.0 Paroxysmal atrial fibrillation; I13.0 Hypertensive heart and chronic kidney disease with heart failure and stage 1 through stage 4 chronic kidney disease, or unspecified chronic kidney disease; D64.9 Anemia, unspecified; K52.9 Noninfective gastroenteritis and colitis, unspecified; E78.5 Hyperlipidemia, unspecified; I25.10 Atherosclerotic heart disease of native coronary artery without angina pectoris; K21.9 Gastro-esophageal reflux disease without esophagitis; T45.515A Adverse effect of anticoagulants, initial encounter; Z96.643 Presence of artificial hip joint, bilateral; E83.41 Hypermagnesemia; Z95.810 Presence of automatic (implantable) cardiac defibrillator; Z87.891 Personal history of nicotine dependence; Z95.5 Presence of coronary angioplasty implant and graft; Z79.899 Other long term (current) drug therapy; Z88.6 Allergy status to analgesic agent; Z79.82 Long term (current) use of aspirin; Z90.49 Acquired absence of other specified parts of digestive tract; I25.2 Old myocardial infarction; Z82.49 Family history of ischemic heart disease and other diseases of the circulatory system

== ENCOUNTER → 2017-12-02 | Outpatient (CLI) | payer OTHER ==
[~2017-12-02] MED LIST changes: +FLAX SEED OIL1000 M2 PO; +KLOR-CON 1010 ME1 PO; +LASIX20 MG PO; +LOMOTIL 2.5-0.1 EACH PO; +METOPROLOL SUC100 M1 PO; +METOPROLOL SUCC50 M1 PO; +MULTIVITAMINS1 EAC5 PO; +OMEPRAZOLE MAGN20 MG PO; +OYSTER SHELL C500 M4 PO; +XARE15TA PO; +ZESTRIL5 MG PO; +[UNRECOGNIZED DRUG - OTHER] PO
--- NOTE | ~2017-12-02 | ST ---
[place], [place] EXERCISE STRESS TEST REPORT [id number] UNIT #: [id number] ROOM: DOCTOR: JOSE C MOODY [facility] BIRTHDATE: [birth year] DOS: LEXISCAN WITH CARDIOLITE The patient received Lexiscan 0.4 mg over 10 seconds. Heart rate obtained was 78, blood pressure response is good. No conclusive electrocardiographic changes for myocardial ischemia noted. The patient received isotope and no complication noted in the myocardial perfusion scan to follow. AMARA WOODALL MD CM:STRESS:EXERCISE STRESS TEST REPORT 1224 42 AMARA WOODALL MD [facility]
== END | disposition home or self-care (01) ==
LOC: CARD 02:14
DX: I25.5 Ischemic cardiomyopathy (principal); R07.89 Other chest pain; R53.83 Other fatigue; I42.9 Cardiomyopathy, unspecified

== ENCOUNTER → 2018-01-13 | Outpatient (CLI) | payer OTHER | END | disposition home or self-care (01) | LOC: CARD 09:22 | DX: I25.5 Ischemic cardiomyopathy (principal); I48.0 Paroxysmal atrial fibrillation ==